=== PATIENT | female | born 1985 | race Caucasian/White ===

== ENCOUNTER → 2018-10-22 | Outpatient (REF) ==
[~2018-10-22] MED LIST: MOTRIN 600600 MG/TAB PO
== END ==
LOC: ZLAB.WCH 16:02
DX: Z01.89 Encounter for other specified special examinations (principal)

== ENCOUNTER → 2018-11-05 | Outpatient (REF) | LOC: ZLAB.WCH 18:38 | DX: Z01.89 Encounter for other specified special examinations (principal) ==

== ENCOUNTER → 2022-02-19 | Outpatient (CLI) | payer OTHER | LOC: MC.RAD 12:52 | DX: N63.10 Unspecified lump in the right breast, unspecified quadrant (principal); N63.20 Unspecified lump in the left breast, unspecified quadrant ==